=== PATIENT | female | born 1945 | race Two or more races ===

== ENCOUNTER → 2023-11-10 | Outpatient (CLI) | payer MEDICARE, OTHER ==
[2023-11-10 15:56] LABS: Blood Urea Nitrogen 19.6 mg/dL (9.0-27.0); Carbon Dioxide 21.8 mmol/L (21.6-31.8); Chloride 106 mmol/L (96-109); Potassium 4.6 mmol/L (3.5-5.5); Sodium 142 mmol/L (135-145)
[2023-11-10 16:57] LABS: HCT 36.5 % (37.2-46.3); HGB 11.7 g/dL (12.0-15.0); MCH 32.1 pg (27.0-32.0); MCHC 32.1 g/dL (32.0-37.0); Mean Platelet Volume 11.5 FL (9.5-12.2); NRBC Per 100 WBC 0 X 10*3/uL (0.00-0.01); Platelet Count 158 X 10*3/uL (140-440); RBC 3.65 X 10*6/uL (4.10-5.20); WBC 7.62 X 10*3/uL (4.50-10.00)
== END | disposition home or self-care (01) ==
LOC: LABPAT 11:00
PROVIDERS: ATTEND Internal Medicine Cardiovascular Disease
DX: Z01.812 Encounter for preprocedural laboratory examination (principal); I35.0 Nonrheumatic aortic (valve) stenosis
CPT/HCPCS: 36415; 80051; 82565; 84520; 85027

== ENCOUNTER 2023-11-18 09:38 | Day surgery (SDC) | payer MEDICARE, OTHER ==
[~2023-11-18 09:38] MED LIST: ALPRAZolam 0.25 MG TAB PO PRN; ALPRAZolam 0.5 MG TAB PO PRN; ASPIRIN 325 MG TAB PO STA; HEPARIN SODIUM,PORCINE (1 ML) 2,500 UNIT in SODIUM CHLORIDE 0.9% 250 ML IRRIGATION PRN; HEPARIN SODIUM,PORCINE 10,000 UNIT in SODIUM CHLORIDE 0.9% 1,000 ML IRRIGATION PRN; NITROGLYCERIN SL TABS 0.4 MG TAB SUBLINGUAL PRN; SODIUM CHLORIDE 0.9% 1,000 ML in EMPTY BAG 1 BAG IV ONE
[2023-11-18] MEDS: SODIUM CHLORIDE 0.9% 1,000 ML IV ONE (10:02)
[2023-11-18 10:17] VITALS: TEMP 97.3
[2023-11-18] MEDS ORDERED: fentaNYL (PF) 50 MCG/ML 2 ML AMP ONE (10:56)
[2023-11-18] MEDS: BENZOCAINE SPRAY 1 CAN TOPICAL ONE ×2 (11:15→11:22)
[2023-11-18] MEDS: MIDAZOLAM 2 MG/2 ML VIAL IVP ONE ×2 (11:26→12:20)
[2023-11-18] MEDS: fentaNYL (PF) 50 MCG/ML 2 ML AMP IVP ONE ×2 (11:26→11:28)
[2023-11-18] MEDS: IV FLUID CONTINUATION 1,000 ML IV ONE (11:40)
[2023-11-18] MEDS ORDERED: VERAPAMIL 2.5 MG/ML 2 ML AMP ONE (11:44)
[2023-11-18] MEDS ORDERED: HEPARIN SODIUM 1,000 UN/ML (10ML VL) ONE (11:44)
[2023-11-18] MEDS ORDERED: LIDOCAINE 1% INJ 10MG/ML (20 ML MDV) ONE (11:44)
[2023-11-18 11:47] VITALS: RESP 18
[2023-11-18] MEDS: LIDOCAINE 1% INJ 10MG/ML (20 ML MDV) SQ ONE ×2 (11:57→12:17)
--- NOTE | 2023-11-18 11:57 | ECHOT ---
TRANSESOPHAGEAL ECHOCARDIOGRAM INDICATION: Symptomatic aortic stenosis. PROCEDURE NOTE: After obtaining informed consent, transesophageal echocardiogram was performed in left lateral position using an Omniplane probe. Local and IV sedation were obtained using 2 mg of Versed and 50 mcg of fentanyl. The patient tolerated the procedure well without any obvious immediate complications. The patient received moderate conscious sedation. Total sedation time was 10 minutes. FINDINGS: 1. Aortic valve: Aortic valve is a 3-leaflet valve, appears heavily calcified and shows severe restriction in leaflet mobility. By planimetry, the valve area is between 0.5 and 0.7 squared cm suggestive of severe aortic stenosis. 2. Left ventricle has normal size and systolic function. Left atrium appears enlarged. Right atrium and right ventricle seen within normal limits. There is mitral annular calcification with mild mitral regurgitation. Tricuspid valve shows mild tricuspid regurgitation. Ascending aorta appears aneurysmally dilated. There is no evidence of qwby-dn-emvdg shunt with color-flow Doppler or bsbli-jq-mijd shunt by agitated saline contrast study. CONCLUSION: 1. Severe aortic stenosis. 2. Normal LV systolic function. PLAN: The patient will undergo cardiac catheterization and will be referred for TAVR. MMODL / IJN: [id number] /
[2023-11-18] MEDS: IOPAMIDOL-370 100ML BTL INJ ONE ×2 (12:36→12:42)
[2023-11-18] MEDS ORDERED: RX INFO: IV CONTRAST WAS GIVEN 1 EACH MISC MISCELLANE PRN (12:59)
[2023-11-18] MEDS ORDERED: SODIUM CHLORIDE 0.9% 1,000 ML IV SCH (13:00)
--- NOTE | 2023-11-18 13:18 | CC ---
CARDIAC CATHETERIZATION REPORT INDICATIONS: Aortic stenosis. PROCEDURE NOTE: After obtaining informed consent, left heart catheterization and coronary angiogram were performed via the right femoral artery using standard Monica catheters. We initially attempted right radial artery access but were unsuccessful. Right femoral arterial access was obtained with ultrasound guidance by Dr. Villalobos, the on-call nuclear design engineer, and I proceeded to perform the cardiac catheterization. FINDINGS: 1. Hemodynamics: Central aortic pressure is 130/70 mm. 2. Left Ventriculogram: Left ventriculogram is not performed. 3. Angiographic Data: a.Right coronary artery appears occluded proximally with extensive nqbm-dl-umqod collaterals. b.Left main coronary artery is a normal-sized vessel and is free of stenosis. Divides into left anterior descending coronary artery and circumflex coronary artery. LAD and its branches are free of significant stenosis. Circumflex coronary artery shows mild nonobstructive disease. 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 PLAN: I will refer the patient to TAVR. MMODL / IJN: [id number] /
[2023-11-18 18:04] VITALS: PULSE 77
[2023-11-18 18:10] VITALS: BP 140/78
== END 2023-11-18 17:27 | disposition home or self-care (01) ==
LOC: CATHCVL 09:38
PROVIDERS: ATTEND Internal Medicine Cardiovascular Disease
DX: I25.10 Atherosclerotic heart disease of native coronary artery without angina pectoris (principal); I25.82 Chronic total occlusion of coronary artery; I35.0 Nonrheumatic aortic (valve) stenosis; I10 Essential (primary) hypertension; E78.5 Hyperlipidemia, unspecified; Z79.82 Long term (current) use of aspirin; Z88.0 Allergy status to penicillin; Z88.5 Allergy status to narcotic agent
CPT/HCPCS: 93312; 93320; 93325; 93454; C1760; C1769 ×3; C1894 ×2; J2250; J2001; J3010; Q9967

== ENCOUNTER 2024-01-15 06:38 | Outpatient (CLI) | payer MEDICARE, OTHER ==
[2024-01-15 07:43] LABS: Basophils % (A) 0 %; Eosinophils # (A) 0.2 k/uL (0-0.7); Eosinophils % (A) 2 %; HCT 37.9 % (34.0-46.0); HGB 12.8 gm/dL (11.4-16.0); Lymphocytes # (A) 1.6 k/uL (1.0-4.8); Lymphocytes % (A) 22 %; MCH 32.3 pg (25.0-35.0); MCHC 33.7 g/dL (31.0-37.0); Mean Platelet Volume 9.1; Monocytes # (A) 1.5 k/uL (0-1.0); Monocytes % (A) 21 %; Neutrophils # (A) 3.8 k/uL (1.3-7.7); Neutrophils % (A) 53 %; Platelet Count 157 k/uL (150-450); RBC 3.95 m/uL (3.80-5.40); RDW 14.1 % (11.5-15.5); WBC 7.1 k/uL (3.8-10.6)
[2024-01-15 07:54] LABS: INR 0.9 (<1.2); Partial Thromboplastin Time 23.8 sec (22.0-30.0); Prothrombin Time 10.4 sec (10.0-12.5)
[2024-01-15 07:55] LABS: ALT 17 U/L (4-34); AST 27 U/L (14-36); African American GFR (CKD) 46 (>60 ml/min/1.73 sqM); Albumin 4.4 g/dL (3.5-5.0); Albumin/Globulin Ratio 1.6; Alkaline Phosphatase 55 U/L (38-126); Anion Gap 10 mmol/L; Blood Urea Nitrogen 30 mg/dL (7-17); Calcium 10.5 mg/dL (8.4-10.2); Carbon Dioxide 27 mmol/L (22-30); Chloride 101 mmol/L (98-107); Globulin 2.7 g/dL; Glucose 147 mg/dL (74-99); Magnesium 1.8 mg/dL (1.6-2.3); Non-African American GFR(CKD) 40 (>60 ml/min/1.73 sqM); Sodium 138 mmol/L (137-145); Total Bilirubin 0.5 mg/dL (0.2-1.3); Total Protein 7.1 g/dL (6.3-8.2)
[2024-01-15 08:04] LABS: NT-Pro-B-Type Natriuretic Pept 2110 pg/mL
[2024-01-15 10:04] LABS: Amorphous Sediment,Urine Few /hpf; Appearance,Urine Cloudy (Clear); Bacteria,Urine Occasional /hpf; Bilirubin,Urine Negative (Negative); Blood,Urine Moderate (Negative); Calcium Oxalate Crystals,Urine Rare /hpf; Color,Urine Light Yellow; Glucose,Urine (UA) Negative (Negative); Hyaline Casts,Urine 12 /lpf (0-2); Ketones,Urine Negative (Negative); Leukocyte Esterase,Urine Negative (Negative); Mucus,Urine Rare /hpf; Nitrite,Urine Negative (Negative); PH, Urine 7.5 (5.0-8.0); Protein,Urine Trace (Negative); RBC,Urine 2 /hpf (0-5); Specific Gravity,Urine 1.009 (1.001-1.035); Squamous Epithelial Cell,Urine 43 /hpf (0-4); Urobilinogen,Urine <2.0 mg/dL (<2.0); WBC,Urine 7 /hpf (0-5)
[2024-01-15 10:38] LABS: Hepatitis A Antibody IgM Nonreactive (Nonreactive); Hepatitis B Core IgM Nonreactive (Nonreactive); Hepatitis B Surface Antigen Nonreactive (Nonreactive); Hepatitis C IgG Antibody Nonreactive (Nonreactive)
--- NOTE | 2024-01-15 11:43 | US ---
EXAMINATION TYPE: US carotid duplex BILAT DATE OF EXAM: 01/15/2024 COMPARISON: NONE CLINICAL INDICATION: Female, 78 years old with history of TAVR WORK UP; TAVE pt TECHNIQUE: Carotid duplex ultrasound examination. Indirect Doppler criteria was utilized. FINDINGS: EXAM MEASUREMENTS: RIGHT: Peak Systolic Velocity (PSV) cm/sec ----- Right CCA: 50.4 ----- Right ICA: 56.9 ----- Right ECA: 43.2 ICA/CCA ratio: 1.1 RIGHT: End Diastole cm/sec ----- Right CCA: 14.4 ----- Right ICA: 24.3 ----- Right ECA: 4.6 LEFT: Peak Systolic Velocity (PSV) cm/sec ----- Left CCA: 49.1 ----- Left ICA: 66.3 ----- Left ECA: 61.7 ICA/CCA ratio: 1.4 LEFT: End Diastole cm/sec ----- Left CCA: 11.0 ----- Left ICA: 20.6 ----- Left ECA: 8.3 VERTEBRALS (direction of flow): Right Vertebral: Antegrade Left Vertebral: Antegrade Rhythm: Normal DIRECTOR HOME HEALTH NOTES: No significant stenosis seen IMPRESSION: No significant flow-limiting stenosis. Criteria for Assigning % of Stenosis / Diameter reduction (Estimation based on the indirect measurements of the internal carotid artery velocities (ICA PSV). 1. Normal (no stenosis)=ICA PSV < 125 cm/s: ratio < 2.0: ICA EDV<40 cm/s. 2. Less than 50% stenosis=ICA PSV < 125 cm/s: ratio < 2.0: ICA EDV<40 cm/s. 3. 50 to 69% stenosis=ICA PSV of 125 to 230 cm/s: ration 2.0 ? 4.0: ICA EDV 40-100 cm/s. 4. Greater than 70% stenosis to near occlusion= ICA PSV > 230 cm/s: ratio > 4.0: ICA EDV > 100 cm/s. 5. Near occlusion= ICA PSV velocities may be low or undetectable: variable ratio and ICA EDV. 6. Total occlusion=unable to detect flow. [facility], , 01/15/2024 11:41 AM
[2024-01-15 15:19] LABS: Chol/HDL Ratio 2.62 Ratio; LDL Cholesterol,Calculated 53.2 mg/dL (0.0-131.0)
== END 2024-01-15 12:40 | disposition home or self-care (01) ==
LOC: LABWHC1 06:38
PROVIDERS: ATTEND Thoracic Surgery (Cardiothoracic Vascular Surgery)
DX: Z01.818 Encounter for other preprocedural examination (principal); I35.0 Nonrheumatic aortic (valve) stenosis; E11.9 Type 2 diabetes mellitus without complications; N28.9 Disorder of kidney and ureter, unspecified; E78.5 Hyperlipidemia, unspecified; R58 Hemorrhage, not elsewhere classified; E07.9 Disorder of thyroid, unspecified; R35.0 Frequency of micturition; Z79.01 Long term (current) use of anticoagulants
CPT/HCPCS: 36415; 80053; 80061; 80074; 81001; 83036; 83735; 83880; 84443; 85025; 85610; 85730; 87086; 93880